=== PATIENT | male | born 1950 | race Caucasian/White ===

== ENCOUNTER 2017-11-21 17:50 | Emergency (ER) | payer MEDICARE ==
[2017-11-21] MEDS ORDERED: ACETAMINOPHEN TAB 325 MG TAB PO STA (19:31)
--- NOTE | 2017-11-21 19:45 | ED ---
General Adult HPI - General Chief complaint: Recheck/Abnormal Lab/Rx Stated complaint: Fever/urine smells post surgery Time Seen by Provider: 11/21/17 19:17 Source: patient Mode of arrival: ambulatory Limitations: no limitations - History of Present Illness Initial comments: 67-year-old male patient who is 10 days status post robotic-assisted transabdominal prostatectomy presents to the emergency department today for complaints of fever, generalized weakness, and body aches. Patient states that last evening he developed fever and body aches. States he is unable to sleep very well and his mind is racing. He states that throughout the day today his temperature has gone as high as 104.0F at home. Patient does have an indwelling Briscoe catheter, states that the color has been darkening and he has been passing blood clots. Patient denies any significant abdominal pain or current drainage from his incisions. Patient states there was a 2-3 day. Her he had serosanguineous drainage from his right lateral abdominal incision but that has resolved. Patient states he does have a slight cough and some nasal drainage however he believes this may be related to ALLERGIES. He denies any sputum production with cough, shortness of breath, or chest tightness. Denies any nausea, vomiting, constipation, or diarrhea. Patient denies any recent rash , back pain, numbness, tingling, dizziness, weakness, headache, visual changes, or any other complaints. - Related Data Allergies Allergy/AdvReac Type Severity Reaction Status Date / Time Penicillins Allergy Unknown Verified 11/21/17 18:25 Review of Systems ROS Statement: Those systems with pertinent positive or pertinent negative responses have been documented in the HPI. ROS Other: All systems not noted in ROS Statement are negative. Past Medical History Past Medical History: No Reported History History of Any Multi-Drug Resistant Organisms: None Reported Past Surgical History: Hernia Repair, Prostate Surgery Past Psychological History: No Psychological Hx Reported Smoking Status: Never smoker Past Alcohol Use History: Occasional Past Drug Use History: None Reported General Exam Limitations: no limitations General appearance: alert, in no apparent distress, other (This is a well- developed, well-nourished adult male patient in no acute distress. Vital signs upon presentation are temperature 100.7F, pulse 121, respirations 18, blood pressure 143/89, pulse ox 96% on room air.) Eye exam: Present: normal appearance, PERRL, EOMI. Absent: scleral icterus, conjunctival injection, periorbital swelling ENT exam: Present: normal exam, normal oropharynx, mucous membranes moist Respiratory exam: Present: normal lung sounds bilaterally. Absent: respiratory distress, wheezes, rales, rhonchi, stridor Cardiovascular Exam: Present: normal rhythm, tachycardia, normal heart sounds. Absent: systolic murmur, diastolic murmur, rubs, gallop, clicks GI/Abdominal exam: Present: soft, normal bowel sounds, other (Abdominal incisions appear well approximated and scabbed.. Be healing well. There is no surrounding erythema, drainage, or tenderness.). Absent: distended, tenderness , guarding, rebound, rigid Neurological exam: Present: alert, oriented X3, CN II-XII intact Psychiatric exam: Present: normal affect, normal mood Skin exam: Present: warm, dry, intact, normal color. Absent: rash Course Vital Signs 11/21/17 11/21/17 11/21/17 18:20 19:59 20:38 Temperature 100.7 F H Pulse Rate 121 H 103 H 96 Respiratory 18 18 18 Rate Blood Pressure 143/89 144/83 144/81 O2 Sat by Pulse 96 96 95 Oximetry 11/21/17 11/21/17 11/21/17 20:45 21:47 23:02 Temperature 102 F H 97.9 F Pulse Rate 86 77 Respiratory 18 18 Rate Blood Pressure 128/84 120/78 O2 Sat by Pulse 95 95 Oximetry EKG Findings - EKG Comments: EKG Findings:: EKG obtained at 2031 shows normal sinus rhythm with some T-wave abnormalities. Educated 97, P interval 138, QR adventism 116, QT 376, QTc 477. No evidence of ST elevation or depression. No previous EKGs to compare. Medical Decision Making - Medical Decision Making 67 year-old male patient presents the emergency department today for evaluation of fever, body aches, and general malaise. Physical examination is relatively unremarkable, patient has 6 healing abdominal incisions with no outward signs of infection. Abdomen is soft and nontender. Labs reviewed and showed an elevated white blood cell count at 16.8. Lactic acid is negative. Urinalysis shows large amount of blood with large leukocyte esterase, 18 white blood cells , and rare bacteria. Patient does have an indwelling Briscoe as he is status post robotic-assisted transabdominal prostatectomy. Chest x-ray showed no acute cardiopulmonary process. Given lack of findings to account for elevated temperature and white blood cell count I did perform CT of the abdomen and pelvis which showed free fluid in the pelvis with presence of gas bubbles suggesting possible inflammatory process. Patient also did have pelvic lymphadenopathy and right-sided hydronephrosis with mild hydroureter. I did discuss the case with Dr. Carpio at [facility] Emergency department. As patient's urologist Dr. Kaleigh Harper, is at their facility we will transfer. Patient has received rocephin. I did recommend patient be transferred by ambulance so he could receive further IV antibiotics as soon as possible. Patient and verbalized understanding, but would rather drive. - Lab Data Result diagrams: 11/21/17 19:50 11/21/17 19:50 Lab Results 11/21/17 11/21/17 11/21/17 Range/Units 19:50 19:50 19:50 WBC 16.8 H (3.8-10.6) k/uL RBC 6.13 H (4.30-5.90) m/uL Hgb 17.2 (13.0-17.5) gm/dL Hct 53.0 (39.0-53.0) % MCV 86.5 (80.0-100.0) fL MCH 28.0 (25.0-35.0) pg MCHC 32.3 (31.0-37.0) g/dL RDW 12.3 (11.5-15.5) % Plt Count 216 (150-450) k/uL Neutrophils % 85 % Lymphocytes % 6 % Monocytes % 7 % Eosinophils % 1 % Basophils % 0 % Neutrophils # 14.3 H (1.3-7.7) k/uL Lymphocytes # 1.0 (1.0-4.8) k/uL Monocytes # 1.1 H (0-1.0) k/uL Eosinophils # 0.2 (0-0.7) k/uL Basophils # 0.1 (0-0.2) k/uL PT (9.0-12.0) sec INR (<1.2) APTT (22.0-30.0) sec Sodium 134 L (137-145) mmol/L Potassium 4.4 (3.5-5.1) mmol/L Chloride 103 (98-107) mmol/L Carbon Dioxide 21 L (22-30) mmol/L Anion Gap 10 mmol/L BUN 19 (9-20) mg/dL Creatinine 0.90 (0.66-1.25) mg/dL Est GFR (CKD-EPI)AfAm >90 (>60 ml/min/1.73 sqM) Est GFR (CKD-EPI)NonAf 89 (>60 ml/min/1.73 sqM) Glucose 122 H (74-99) mg/dL Plasma Lactic Acid Benito 1.4 (0.7-2.0) mmol/L Calcium 9.2 (8.4-10.2) mg/dL Total Bilirubin 2.7 H (0.2-1.3) mg/dL AST 22 (17-59) U/L ALT 19 L (21-72) U/L Alkaline Phosphatase 129 H (38-126) U/L Total Protein 6.7 (6.3-8.2) g/dL Albumin 3.8 (3.5-5.0) g/dL Urine Color Urine Appearance (Clear) Urine pH (5.0-8.0) Ur Specific Ada (1.001-1.035) Urine Protein (Negative) Urine Glucose (UA) (Negative) Urine Ketones (Negative) Urine Blood (Negative) Urine Nitrite (Negative) Urine Bilirubin (Negative) Urine Urobilinogen (<2.0) mg/dL Ur Leukocyte Esterase (Negative) Urine RBC (0-5) /hpf Urine WBC (0-5) /hpf Urine Bacteria (None) /hpf 11/21/17 11/21/17 Range/Units 19:50 19:57 WBC (3.8-10.6) k/uL RBC (4.30-5.90) m/uL Hgb (13.0-17.5) gm/dL Hct (39.0-53.0) % MCV (80.0-100.0) fL MCH (25.0-35.0) pg MCHC (31.0-37.0) g/dL RDW (11.5-15.5) % Plt Count (150-450) k/uL Neutrophils % % Lymphocytes % % Monocytes % % Eosinophils % % Basophils % % Neutrophils # (1.3-7.7) k/uL Lymphocytes # (1.0-4.8) k/uL Monocytes # (0-1.0) k/uL Eosinophils # (0-0.7) k/uL Basophils # (0-0.2) k/uL PT 12.3 H (9.0-12.0) sec INR 1.3 H (<1.2) APTT 28.2 (22.0-30.0) sec Sodium (137-145) mmol/L Potassium (3.5-5.1) mmol/L Chloride (98-107) mmol/L Carbon Dioxide (22-30) mmol/L Anion Gap mmol/L BUN (9-20) mg/dL Creatinine (0.66-1.25) mg/dL Est GFR (CKD-EPI)AfAm (>60 ml/min/1.73 sqM) Est GFR (CKD-EPI)NonAf (>60 ml/min/1.73 sqM) Glucose (74-99) mg/dL Plasma Lactic Acid Benito (0.7-2.0) mmol/L Calcium (8.4-10.2) mg/dL Total Bilirubin (0.2-1.3) mg/dL AST (17-59) U/L ALT (21-72) U/L Alkaline Phosphatase (38-126) U/L Total Protein (6.3-8.2) g/dL Albumin (3.5-5.0) g/dL Urine Color Light Yellow Urine Appearance Clear (Clear) Urine pH 5.5 (5.0-8.0) Ur Specific Ada 1.005 (1.001-1.035) Urine Protein Negative (Negative) Urine Glucose (UA) Negative (Negative) Urine Ketones Negative (Negative) Urine Blood Large H (Negative) Urine Nitrite Negative (Negative) Urine Bilirubin Negative (Negative) Urine Urobilinogen <2.0 (<2.0) mg/dL Ur Leukocyte Esterase Large H (Negative) Urine RBC 3 (0-5) /hpf Urine WBC 18 H (0-5) /hpf Urine Bacteria Rare H (None) /hpf - Radiology Data Radiology results: report reviewed, image reviewed CT abdomen and pelvis with contrast was obtained. Report was reviewed in its entirety. Impression by Dr. Yanez shows moderate free fluid in the pelvis. Pelvic lymphadenopathy. Free fluid could relate to hemorrhage or infection. Follow-up is recommended. Fluid density is 10 minutes she just that this is not hemorrhage. There are also a few air bubbles and fluid in the pelvis that suggest inflammatory process. Multiple small renal cortical cyst. Mild right- sided hydronephrosis could relate inflammatory process in the pelvis. No calculus seen. Two-view x-ray of the chest is obtained. The lungs are clear. Pleural spaces are negative. Hemidiaphragms are elevated on both views, consistent with low lung inflation at time of x-ray exposure. The cardiac silhouette appears mildly enlarged. The mediastinal pleural Barney are unremarkable. Skeletal structures are intact without acute findings. The soft tissues are negative for acute findings. Impression by Dr. Sea Mondragon shows no definite acute radiographic process. Disposition Clinical Impression: Free fluid in pelvis, Sepsis, Hydronephrosis, right, Pelvic lymphadenopathy Disposition: OTHER INSTITUTION NOT DEFINED Condition: Serious Referrals: Ashok Baez MD [Primary Care Provider] - 1-2 days - Out of Hospital Transfer - Req. Specs Out of Hospital Transfer - Requested Specifics: Other Emergency Center ([facility])
[2017-11-21] MEDS: SODIUM CHLORIDE 0.9% 500 ML IV SCH (19:48)
[2017-11-21 20:01] LABS: Basophils # (A) 0.1 k/uL (0-0.2); Basophils % (A) 0 %; Eosinophils # (A) 0.2 k/uL (0-0.7); Eosinophils % (A) 1 %; HGB 17.2 gm/dL (13.0-17.5); Lymphocytes % (A) 6 %; MCHC 32.3 g/dL (31.0-37.0); MCV 86.5 fL (80.0-100.0); Mean Platelet Volume 6.8; Monocytes # (A) 1.1 k/uL (0-1.0); Monocytes % (A) 7 %; Neutrophils # (A) 14.3 k/uL (1.3-7.7); Neutrophils % (A) 85 %; Platelet Count 216 k/uL (150-450); RBC 6.13 m/uL (4.30-5.90); RDW 12.3 % (11.5-15.5); WBC 16.8 k/uL (3.8-10.6)
[2017-11-21] MEDS ORDERED: cefTRIAXone IN SWFI 1,000 MG/10 ML SYRINGE IVP STA (20:05)
[2017-11-21] MEDS ORDERED: SODIUM CHLORIDE 0.9% 1,000 ML IV ONE (20:05)
[2017-11-21 20:13] LABS: ALT 19 U/L (21-72); AST 22 U/L (17-59); Albumin 3.8 g/dL (3.5-5.0); Alkaline Phosphatase 129 U/L (38-126); Anion Gap 10 mmol/L; Blood Urea Nitrogen 19 mg/dL (9-20); Calcium 9.2 mg/dL (8.4-10.2); Carbon Dioxide 21 mmol/L (22-30); Chloride 103 mmol/L (98-107); Glucose 122 mg/dL (74-99); Potassium 4.4 mmol/L (3.5-5.1); Sodium 134 mmol/L (137-145); Total Bilirubin 2.7 mg/dL (0.2-1.3); Total Protein 6.7 g/dL (6.3-8.2)
[2017-11-21 20:14] LABS: INR 1.3 (<1.2); Partial Thromboplastin Time 28.2 sec (22.0-30.0); Prothrombin Time 12.3 sec (9.0-12.0)
[2017-11-21 20:22] LABS: Appearance,Urine Clear (Clear); Bacteria,Urine Rare /hpf; Bilirubin,Urine Negative (Negative); Blood,Urine Large (Negative); Color,Urine Light Yellow; Glucose,Urine (UA) Negative (Negative); Ketones,Urine Negative (Negative); Leukocyte Esterase,Urine Large (Negative); Nitrite,Urine Negative (Negative); PH, Urine 5.5 (5.0-8.0); Protein,Urine Negative (Negative); RBC,Urine 3 /hpf (0-5); Specific Gravity,Urine 1.005 (1.001-1.035); Urobilinogen,Urine <2.0 mg/dL (<2.0); WBC,Urine 18 /hpf (0-5)
[2017-11-21] MEDS ORDERED: IBUPROFEN 600 MG TAB PO STA (21:04)
--- NOTE | 2017-11-21 21:51 | XR ---
EXAMINATION: XR chest 2V DATE AND TIME: 11/21/2017 9:04 PM ORDERING PROVIDER: Mariangel Segovia CLINICAL INDICATION: Fever TECHNIQUE: PA and lateral COMPARISON: None. DESCRIPTION: The lungs are clear. The pleural spaces are negative. The hemidiaphragms are elevated on both views, consistent with low l sayra inflation at the moment of x-ray exposure. The cardiac silhouette appears mildly enlarged. The mediastinal and pleural silhouettes are unremarkable. The skeletal structures are intact without acute findings. The soft tissues are negative for acute findings. IMPRESSION: NO DEFINITE ACUTE RADIOGRAPHIC PROCESS.
--- NOTE | 2017-11-21 23:27 | CT ---
EXAMINATION TYPE: CT abdomen pelvis w con DATE OF EXAM: 11/21/2017 COMPARISON: None HISTORY: Fever and body aches after prostate surgery x2 weeks ago. CT DLP: 1885.2 mGycm Automated exposure control for dose reduction was used. TECHNIQUE: Helical acquisition of images was performed from the lung bases through the pelvis. CONTRAST: Performed without Oral Contrast and with IV Contrast, patient injected with 100ml mL of Isovue 300. FINDINGS: There is no pleural effusion. Lung bases are clear of consolidation. There is no pericardial effusion . Liver shows no focal defect. Spleen appears normal. There is no pancreatic mass. Gallbladder appears normal. There is some nodular appearance of the adrenal glands. I see no adrenal mass. Kidneys have normal size. There is 1.5 cm cyst on the posterior right kidney. There are other smaller renal cortical cysts. There is mild right-sided hydronephrosis and proximal hydroureter. No ureteral calculus is seen. There is Briscoe catheter in the urinary bladder. Bladder is empty. There is free fl uid in the pelvis that measures up to 4 cm in thickness. I see no evidence of a solid pelvic mass. Pr ostate is absent consistent with prostatectomy. There are a few air bubbles within the pelvic fluid. I see no intestinal wall thickening. There is no evidence of a bowel obstruction. Appendix appears no rmal. There is no retroperitoneal adenopathy. There are some enlarged pelvic lymph nodes. The largest on the left side measures 2.6 cm. IMPRESSION: THERE IS MODERATE FREE FLUID IN THE PELVIS. PELVIC LYMPHADENOPATHY. FREE FLUID COULD RELATE TO HEMORR JULIEN OR INFECTION. FOLLOW-UP IS RECOMMENDED. THE FLUID DENSITY IS 10 WHICH SUGGESTS THAT THIS IS NOT HEMORRHAGE. THERE ARE ALSO A FEW AIR BUBBLES IN THE FLUID IN THE PELVIS THAT SUGGESTS INFLAMMATORY IL OCESS. MULTIPLE SMALL RENAL CORTICAL CYSTS. MILD RIGHT SIDE HYDRONEPHROSIS COULD RELATE TO INFLAMMATORY PROC ESS IN THE PELVIS. NO CALCULUS SEEN.
[2017-11-22 01:16] VITALS: BP 123/75; PULSE 74; RESP 20; TEMP 98.2
== END 2017-11-22 01:41 | disposition short-term general hospital (02) ==
LOC: EC 17:50
DX: N13.30 Unspecified hydronephrosis (principal); A41.9 Sepsis, unspecified organism; R59.0 Localized enlarged lymph nodes; N28.1 Cyst of kidney, acquired; D72.829 Elevated white blood cell count, unspecified; N13.4 Hydroureter; R82.99 Other abnormal findings in urine; R00.0 Tachycardia, unspecified; R05 Cough; J34.89 Other specified disorders of nose and nasal sinuses; Z88.0 Allergy status to penicillin; Z90.79 Acquired absence of other genital organ(s)
CPT/HCPCS: 36415; 93005; 80053; 83605; 85025; 85610; 85730; 81001; 87040; 87086; 71046; 74177; 99285; 96374; 96361 ×6; J0696; Q9967